=== PATIENT | female | born 2000 | race Caucasian/White ===

== ENCOUNTER 2020-12-27 17:13 | Emergency (ER) | payer OTHER ==
[~2020-12-27] VITALS: Ht 160 cm; Wt 54.4 kg
--- NOTE | 2020-12-27 17:52 | NUR ---
BIB mother for recent dx w/UTI on meds but NOT getting better. Back pain worse. Fever". The patient rates back pain 10/10. Will continue to monitor the patient.
[2020-12-27] MEDS ORDERED: IBUPROFEN 600 MG TABLET PO ONE (18:00)
[2020-12-27] MEDS ORDERED: IV NS 0.9% 1,000 ML BAG IV ONE (18:00)
[2020-12-27] MEDS ORDERED: ONDANSETRON HCL/PF 4 MG/2 ML VIAL IVP ONE (18:00)
[2020-12-27 18:14] LABS: BILIRUBIN,URINE NEGATIVE (NEGATIVE); COLOR,URINE YELLOW (YELLOW); LEUKOCYTE ESTERASE ,URINE SMALL (NEGATIVE); NITRITE, URINE NEGATIVE (NEGATIVE); PROTEIN,URINE NEGATIVE (NEGATIVE); UGLUCOSE NEGATIVE (NEGATIVE); UROBILINOGEN,URINE 0.2 EU/dL (0.2)
[2020-12-27 18:26] LABS: BACTERIA,URINE 1+ /HPF (None Seen); RBC,URINE 0-2 /HPF (0-2); SQUAMOUS EPITHELIAL CELL,UR 0-2 /HPF (None Seen)
[2020-12-27] MEDS ORDERED: CEFTRIAXONE 1GM BAG (ER ONLY) 1 GM/50 ML PIGGYBACK IV ONE (18:30)
[2020-12-27] MEDS ORDERED: LORAZEPAM 0.5 MG TABLET ONE (18:33)
[2020-12-27] MEDS ORDERED: CEPH500T PO (18:55)
[2020-12-27] MEDS ORDERED: LORAZEPAM 1 MG TABLET PO ONE (19:00)
[2020-12-27] MEDS ORDERED: CEFTRIAXONE 1GM BAG (ER ONLY) 50 ML IV ONE (19:17)
[2020-12-27] MEDS ORDERED: ONDANSETRON HCL/PF 4 MG/2 ML VIAL ONE (19:17)
[2020-12-27] MEDS ORDERED: IBUPROFEN 600 MG TABLET ONE (19:17)
--- NOTE | 2020-12-27 19:30 | NUR ---
Mother at the bedside
[2020-12-27 19:50] LABS: CALCIUM, SERUM 9.5 mg/dL (8.5-10.1); CREATININE 0.8 mg/dL (0.6-1.3); POTASSIUM 3.4 mmol/L (3.5-5.1)
[2020-12-27 20:19] LABS: EOSINOPHILS % (AUTO) 0.5 % (0.0-6.0); HEMATOCRIT 40 % (33-45); HEMOGLOBIN 13.2 g/dL (11.5-14.8); LYMPHOCYTES # (AUTO) 0.3 K/uL (0.8-4.8); LYMPHOCYTES % (AUTO) 3.3 % (20.0-44.0); MEAN CORPUSCULAR HGB CONC 33 g/dl (31.0-36.0); MEAN CORPUSCULAR VOLUME 83 fL (82-100); MONOCYTES # (AUTO) 0.2 K/uL (0.1-1.30); MONOCYTES % (AUTO) 2.4 % (2.0-12.0); NEUTROPHILS # (AUTO) 7.9 K/uL (1.8-8.9); NEUTROPHILS % (AUTO) 93.8 % (43.0-81.0); PLATELET COUNT (AUTO) 235 K/uL (150-450); RED BLOOD CELL COUNT(AUTO) 4.81 MIL/uL (4.0-5.2); WHITE BLOOD COUNT (AUTO) 8.5 K/uL (4.3-11.0)
[2020-12-27] MEDS ORDERED: TRAMADOL HCL 50 MG TABLET PO ONE (21:00)
[2020-12-27] MEDS ORDERED: IV NS 0.9% 500 ML BAG IV ONE (21:00)
[2020-12-27] MEDS ORDERED: TRAMADOL HCL 50 MG TABLET ONE (21:03)
[2020-12-27] MEDS ORDERED: TRAM50TA2 PO (21:40)
--- NOTE | 2020-12-27 22:10 | NUR ---
Patient/family discharged to home in stable condition. Rx and Written and verbal after care instructions given. Patient/family verbalizes understanding of instruction.
[2020-12-27 22:34] VITALS: BP 111/61
== END 2020-12-27 22:15 | disposition home or self-care (01) ==
LOC: ER 17:20
DX: N10 Acute pyelonephritis (principal); Z20.822 Contact with and (suspected) exposure to COVID-19
CPT/HCPCS: 36415; 80048; 81001; 84703; 85025; 87040 ×2; 87086; 87426; 87804; 96365; 96375; 99284; C9803; J0696; J2405; J7040